=== PATIENT | male | born 1975 | race Two or more races ===

== ENCOUNTER 2025-09-15 18:16 | Emergency (ER) | payer MEDICAID ==
[~2025-09-15] VITALS: Ht 188 cm; Wt 100.0 kg
[2025-09-15 18:33] VITALS: TEMP 98.3
[2025-09-15] MEDS: BACITRACIN 0.9 GM PACKET OINTMENT TP ONE (19:52)
[2025-09-15] MEDS: PERTUSS(ACELL),DIPH,TET/PF 0.5 ML SYRINGE [ADULT] IM. ONE (20:36)
[2025-09-15] MEDS: LIDOCAINE 1% 10 ML VIAL ID ONE (21:28)
[2025-09-15] MEDS ORDERED: CEPH-558 PO (21:54)
[2025-09-15] MEDS: CEPHALEXIN MONOHYDRATE 500 MG CAPSULE PO ONE (21:58)
[2025-09-15 22:15] VITALS: BP 127/89; PULSE 70; RESP 16; O2SAT 100
== END 2025-09-16 01:48 | disposition home or self-care (01) ==
LOC: EMS 18:16
DX: S62.304A Unspecified fracture of fourth metacarpal bone, right hand, initial encounter for closed fracture (principal); W19.XXXA Unspecified fall, initial encounter; Y93.89 Activity, other specified; Y92.89 Other specified places as the place of occurrence of the external cause; Y99.8 Other external cause status
CPT/HCPCS: 99283; 73130; 90715; 90471; J3490